=== PATIENT | female | born 1965 | race Caucasian/White ===

== ENCOUNTER 2023-04-14 05:29 | Outpatient (CLI) | payer SELFPAY ==
[2023-04-14] MEDS: Levalbuterol HFA 15 GM INH 4 PUFF IH (11:25)
[2023-04-14] MEDS: Inhaler, Assist Device 1 EACH MC (11:25)
--- NOTE | 2023-04-14 14:14 | W.PFT ---
Date of service: 04/14/23 Time of Service: 10:11 Pulmonary Function Test Result Indications: Dyspnea Interpretation Spirometry: There is mild airflow limitation. No bronchodilator response. Lung Volumes: There is air trapping Diffusion Capacity: Decreased diffusion Airway Pressure: Normal airways resistance Impression Mild airflow obstruction with air trapping and reduced diffusion. This is consistent with COPD with emphysema. Clinical Correlation therefore is recommended.
== END 2023-04-14 05:30 | disposition home or self-care (01) ==
LOC: RT 05:29
PROVIDERS: PCP Physician Assistant; Visit Provider Physician Assistant
DX: Z87.891 Personal history of nicotine dependence (principal)
CPT/HCPCS: 94060; 94726; 94729